=== PATIENT | male | born 1950 | race Caucasian/White ===

== ENCOUNTER 2017-08-26 13:38 | Inpatient (IN) | payer MEDICARE ==
[~2017-08-26] VITALS: Ht 177.8 cm; Wt 71.4 kg
[2017-08-26 14:40] VITALS: BP 149/69
[2017-08-26] MEDS ORDERED: HYDROMORPHONE 1MG/1ML INJ IV PRN (14:45)
[2017-08-26 15:52] VITALS: BP 149/69
[2017-08-26] MEDS: HYDROMORPHONE 2MG/ML INJ IV PRN ×2 (16:15→22:21)
[2017-08-26] MEDS: POLYETHYLENE GLYCOL 3350 17 GM PACK PO SCH ×2 (16:15→16:25)
[2017-08-26 16:39] VITALS: BP 140/53
[2017-08-26 18:05] LABS: BASOPHILS % 0.1 % (0.0-1.0); EOSINOPHILS # (AUTO) 0.2 (0.0-0.4); EOSINOPHILS % 1.2 % (0.0-6.0); HEMATOCRIT 39.9 % (38.2-49.6); HEMOGLOBIN 13.9 g/dL (14.0-18.0); LYMPHOCYTES # (AUTO) 1.2 (1.0-3.2); LYMPHOCYTES % 9.9 % (18.0-39.1); MEAN CORPUSCULAR HEMOGLOBIN 30.1 pg (28-32); MEAN CORPUSCULAR HGB CONC 34.8 g/dL (31-35); MEAN CORPUSCULAR VOLUME 86.4 fL (81-99); MONOCYTES # (AUTO) 0.9 (0.2-0.8); MONOCYTES % 7.6 % (4.4-11.3); NEUTROPHILS # (AUTO) 9.9 (2.1-6.9); NEUTROPHILS % 80.9 % (38.7-80.0); PLATELET COUNT 219 x10e3/uL (140-360); RED BLOOD COUNT 4.62 x10e6/uL (4.3-5.7); RED CELL DISTRIBUTION WIDTH 14.1 % (11.7-14.4)
[2017-08-26 18:18] LABS: INR 1.19; PROTHROMBIN TIME 14.2 seconds (11.9-14.5)
[2017-08-26 18:24] LABS: ANION GAP 12.8 mmol/L (8-16); BLOOD UREA NITROGEN 25 mg/dL (7-26); BUN/CREATININE RATIO 32 (6-25); CALCIUM 9.1 mg/dL (8.4-10.2); CARBON DIOXIDE 27 mmol/L (22-29); CHLORIDE 102 mmol/L (98-107); CREATININE, SERUM 0.79 mg/dL (0.72-1.25); EST GLOMERULAR FILTRATION RATE > 60 ML/MIN (60-); GLUCOSE 228 mg/dL (74-118); POTASSIUM 3.8 mmol/L (3.5-5.1); SODIUM 138 mmol/L (136-145)
[2017-08-26] MEDS ORDERED: KCL 20MEQ/.9 SOD CHL 1,000 ML IV ONE (19:30)
[2017-08-26] MEDS ORDERED: ALBUTEROL/IPRATROPIUM 3 ML NEB NEB PRN (19:30)
[2017-08-26] MEDS ORDERED: ONDANSETRON HCL INJ 2 MG/ML VIAL IV PRN (19:30)
[2017-08-26] MEDS ORDERED: DEXTROSE 50% SYRINGE 50 ML IV PRN (19:30)
[2017-08-26] MEDS: ACETAMINOPHEN 325 MG TAB PO PRN (19:59)
[2017-08-26] MEDS: SENNA-S TABLET PO SCH (20:19)
[2017-08-26 20:56] VITALS: BP 162/73
[2017-08-26] MEDS: INSULIN LISPRO 100 UNIT/1 ML 3ML VIAL SQ SCH (21:01)
--- NOTE | 2017-08-26 21:21 | Diagnostic Imaging Report ---
EXAMINATION: CHEST 2 VIEWS INDICATION: COPD. COMPARISON: None FINDINGS: TUBES and LINES: None. LUNGS: Lungs are well inflated. Minimal perihilar and bibasilar interstitial changes compatible with senile fibrosis. There is no evidence of pneumonia or pulmonary edema. No evidence of hyperinflation to suggest moderate to severe COPD PLEURA: No pleural effusion or pneumothorax. HEART AND MEDIASTINUM: The cardiomediastinal silhouette is remarkable for status post midline sternotomy with intact wires for CABG procedure. BONES AND SOFT TISSUES: There are degenerative changes in the thoracic spine. Soft tissues are unremarkable. UPPER ABDOMEN: No free air under the diaphragm. IMPRESSION: No acute thoracic abnormality. Signed by: Dr. Rob Vo M.D. on 08/26/2017 9:18 PM
--- NOTE | 2017-08-26 21:29 | History and Physical ---
PRESENTING COMPLAINT: Difficulty in swallowing with persistent nausea and abdominal discomfort, got worsened today, persisting for months. HISTORY OF PRESENT ILLNESS: This 67-year-old male was admitted from the office of Dr. Dayday Cruz, insurance risk analyst. I was called by Dr. Cruz to get involved in the care of this patient. Patient was seen in his office today. Patient tells that he had gradually worsening difficulty in swallowing and abdominal pain which was persisting off and on for the last more than 3 years. He was followed up at [facility] for last 3-1/2 years. Recently, less than 2 weeks ago, he was admitted at [facility] with similar problem. He had a CT abdomen and pelvis with contrast which showed patient has atherosclerotic disease affecting abdominal aorta, superior mesenteric artery with mild stenosis of the renal artery. Patient also had gastric emptying study which was significant for gastroparesis. Patient tells that he cannot tolerate any food. The moment he takes some food following which he feels his abdomen gets bloated and starts feeling nauseating. He also had vomiting last week. He did not have any presence of blood with vomitus. He also denied any presence of blood with stool. Patient had EGD last year at [facility], was negative for any abnormal finding as per the patient's statement. Patient denies any fever, chest pain or shortness of breath at the present time. He has chronic bilateral leg pain and lower back pain. Patient was not on any narcotic medication as per his statements. REVIEW OF SYSTEMS CONSTITUTIONAL: No fever, chills or rigor. EYES, ENT: No nasal congestion. No sore throat. No earache. CARDIOVASCULAR: No chest pain, no palpitation, no shortness of breath. PULMONARY: No cough. No hemoptysis. GI: Abdominal discomfort, nausea, vomiting and difficulty swallowing as per HPI. : No dysuria. No hematuria. MUSCULOSKELETAL, SKIN, LYMPHORETICULAR: Patient has low back pain and bilateral leg pain. No other joint swelling or joint pain. NEUROLOGICAL: No loss of consciousness, seizure or headache. Patient has chronic tremor affecting bilateral upper extremity, more on the right side due to Parkinson disease. HISTORY OF PAST MEDICAL ILLNESS 1. CAD, status post CABG in 2003 at [facility], status post PCI in [address] [facility]. 2. Hypertension. 3. Hyperlipidemia. 4. PAD affecting bilateral lower extremity. 5. Atherosclerotic arterial disease affecting abdominal aorta, superior mesenteric artery, renal artery on recent CT abdomen with contrast at [facility]. 6. Systolic dysfunction with ejection fraction 50% to 55%. 7. Diabetes mellitus type 2 for more than 20 years. 8. Hyperlipidemia. 9. Diabetic neuropathy. 10. Parkinson disease, more than 10 years. 11. COPD. 12. Lumbar spondylosis. 13. Chronic malnutrition. 14. Patient denied any history of stroke or cancer. HISTORY OF PAST SURGERY: 1. CABG in 2003. 2. PCI in [address] [facility]. 3. Toe amputation at [facility]. 4. Lumbar spinal surgery in remote past as per the patient's statement. 5. EGD/colonoscopy done more than 1 year ago [address] [facility] as per the patient's statement. ALLERGIES: NO KNOWN MEDICATION ALLERGY. HOME MEDICATIONS: As per med reconciliation sheet. SOCIAL HISTORY: Patient lives at [place] in [place] in the [place] area. He lives alone now. His last year as per the patient's statement. He is in contact with his adult offspring. He has 3 grown up offspring as per his statement. Patient is a retired marine electrician. He retired from job after his CABG in 2003. HABITS: Patient quit smoking recently. He smoked cigarette heavily for 50 years as per his statement. Denies alcohol or other substance abuse history. FAMILY HISTORY: The patient's grandfather of CAD in old age. His father of old age, had dementia. His mother of breast cancer. Siblings are alive and healthy. No other family member had history of diabetes mellitus as per the patient's statement. PHYSICAL EXAMINATION VITALS: Today BP 149/69, pulse 89, temp 97.6, respirations 20, SpO2 97% at room air. GENERAL: Alert, in moderate distress due to abdominal pain and back pain. HEENT: NC, AT. No pallor. No icterus. Oral mucosa dry. NECK: No JVD. No carotid bruits. No lymphadenopathy. No thyromegaly. HEART: S1, S2, regular. No murmur. LUNGS: Clear to auscultation. No crackles. No rhonchi. ABDOMEN: Soft. Mild diffuse tenderness over epigastric area. No palpable mass. Bowel sounds active in all quadrants. EXTREMITIES: No edema, cyanosis or clubbing. NEUROLOGICAL: Motor grossly equal on both sides. Tremor present in bilateral upper extremity, more on the right side. LAB DATA: CBC: WBC 12.27, hemoglobin 13.9, hematocrit 39.9, platelets 219,000, MCV 86, RDW 14, neutrophils 80, lymphocytes 9.9. PT 14.2, INR 1.19. Chemistry panel: Sodium 138, potassium 3.8, chloride 102, CO2 27, anion gap 9, BUN 25, creatinine 0.79, glucose 224, calcium 9.1. EKG pending. ASSESSMENT AND PLAN 1. Abdominal pain with difficulty in swallowing and recurrent nausea, vomiting. Appears multifactorial. Patient has diabetic gastroparesis as per recent gastric emptying study done at [facility]. Also, he has atherosclerotic arterial disease affecting abdominal aorta and mesenteric artery on computed tomographic scan. Patient does not have any postprandial abdominal pain, but he has feeling of bloating as per his statement. Would keep the patient on p.o. feeding as tolerated. Follow up with Dr. Cruz, insurance risk analyst, who admitted the patient. 2. 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 Would request cardiology evaluation by Dr. Wilde. The patient does not follow with any dog breeder as he left [facility] as per his statement. 3. Peripheral arterial disease, bilateral lower extremity. Would follow dog breeder's recommendation. 4. Coronary artery disease, status post coronary artery bypass graft. Patient does not have any chest pain. Recent cardiac workup at [facility] was negative. His ejection fraction was 50%. Would monitor for now. Continue regular medication. 5. Parkinson disease. Continue patient's regular medication. Patient was on Sinemet and amantadine as per his statement. Continue the same dose. He was followed up at [facility] Neurology. Patient can follow with neurologist as an outpatient after discharge from the hospital. 6. Diabetes mellitus type 2. Patient was on Lantus insulin 20 units at home. Will continue his regular insulin regimen along with sliding scale. 7. Hyperlipidemia. Continue patient on his statin. 8. Malnutrition due to poor oral intake from abdominal pain and difficulty swallowing. Would follow insurance risk analyst's recommendation. 9. Chronic back pain and leg pain. Patient might benefit from physical therapy. Will request physical therapy/occupational therapy evaluation. 10.Discharge plan will depend upon gastroenterology's and dog breeder's recommendation. 11. Advanced directive. Patient is full code for now. Job#: [id number] KAE MONTOYA
[2017-08-27] VITALS (8 sets, daily range): BP systolic 121–165; BP diastolic 51–82
[2017-08-27] MEDS: HYDROMORPHONE 2MG/ML INJ IV PRN ×3 (04:01→19:40)
[2017-08-27 06:12] LABS: BASOPHILS % 0.2 % (0.0-1.0); EOSINOPHILS # (AUTO) 0.4 (0.0-0.4); EOSINOPHILS % 5.9 % (0.0-6.0); HEMATOCRIT 37.5 % (38.2-49.6); LYMPHOCYTES # (AUTO) 1.3 (1.0-3.2); LYMPHOCYTES % 21.3 % (18.0-39.1); MEAN CORPUSCULAR HEMOGLOBIN 30.4 pg (28-32); MEAN CORPUSCULAR HGB CONC 34.7 g/dL (31-35); MEAN CORPUSCULAR VOLUME 87.6 fL (81-99); MONOCYTES # (AUTO) 0.8 (0.2-0.8); MONOCYTES % 12.2 % (4.4-11.3); NEUTROPHILS # (AUTO) 3.8 (2.1-6.9); NEUTROPHILS % 60.2 % (38.7-80.0); PLATELET COUNT 205 x10e3/uL (140-360); RED BLOOD COUNT 4.28 x10e6/uL (4.3-5.7); RED CELL DISTRIBUTION WIDTH 14.1 % (11.7-14.4)
[2017-08-27 06:41] LABS: ALANINE AMINOTRANSFERASE 26 IU/L (0-55); ALBUMIN/GLOBULIN RATIO 0.9 (0.8-2.0); ALKALINE PHOSPHATASE 71 IU/L (40-150); AMYLASE 33 U/L (25-125); ANION GAP 11.6 mmol/L (8-16); BLOOD UREA NITROGEN 20 mg/dL (7-26); BUN/CREATININE RATIO 28 (6-25); CALCIUM 8.8 mg/dL (8.4-10.2); CARBON DIOXIDE 28 mmol/L (22-29); CHLORIDE 104 mmol/L (98-107); CHOL/HDL RATIO 2.8 (3.9-4.7); CHOLESTEROL 91 MD/DL (0-199); CREATININE, SERUM 0.71 mg/dL (0.72-1.25); EST GLOMERULAR FILTRATION RATE > 60 ML/MIN (60-); GLUCOSE 120 mg/dL (74-118); HDL CHOLESTEROL 33 MG/DL (40-60); LDL CHOLESTEROL 49 MG/DL (60-130); LIPASE 6 U/L (8-78); POTASSIUM 3.6 mmol/L (3.5-5.1); SODIUM 140 mmol/L (136-145); TRIGLYCERIDES 46 MG/DL (0-149)
[2017-08-27 06:42] LABS: B-TYPE NATRIURETIC PEPTIDE2 132.3 pg/mL (0-100)
[2017-08-27] MEDS: INSULIN LISPRO 100 UNIT/1 ML 3ML VIAL SQ SCH ×4 (07:30→21:00)
[2017-08-27] MEDS ORDERED: ONDANSETRON HCL 4 MG ORAL DISINTEGRATING TAB SL PRN (09:00)
[2017-08-27] MEDS ORDERED: PEG (High)/E-LYTE SOLN 4,000 ML BTL PO ONE (09:00)
[2017-08-27] MEDS ORDERED: BISACODYL 5 MG TAB EC PO ONE ×2 (09:00→12:45)
[2017-08-27] MEDS ORDERED: DIATRIZOATE MEGL/DIATRIZOA SOD 30 ML BTL PO ONE (09:41)
--- NOTE | 2017-08-27 11:25 | Consultation ---
DATE OF CONSULTATION: August 26, 2017 GASTROENTEROLOGY CONSULTATION REASON FOR ADMISSION: Diffuse abdominal pain, early satiation, nausea and weight loss. HISTORY OF PRESENT ILLNESS: This 67-year-old, very pleasant, white male is well known to me from his admission in [facility] last week. He was admitted there with tramadol-induced severe constipation and fecal impaction. He was digitally disimpacted. He was given GoLYTELY to flush out all the stool. After having several bowel movements, the patient felt better, and he was discharged home successfully. Today, his daughters brought him in to my office, telling me that he is not feeling good. He is complaining of diffuse abdominal pain. He has not had a bowel movement for several days. He is nauseated. He has also lost 10 pounds in the last couple of months. Digital rectal examination done in the office revealed no fecal impaction. The rectal vault was empty. Abdominal exam was also quite benign. The patient got admitted to [facility] for further evaluation. I admitted the patient under Dr. Cardenas' service. REVIEW OF SYSTEMS: Twelve point systems reviewed. Symptomatology is limited to GI system. PAST MEDICAL HISTORY: Coronary artery disease, hypertension, hyperlipidemia, Parkinson disease, peripheral arterial disease, congestive heart failure, type-2 diabetes, diabetic neuropathy, lumbar spondylosis, COPD. PAST SURGICAL HISTORY: CABG in 2003, cardiac catheterization at [facility], toe amputation, lumbar spinal surgery also at [facility]. Per patient, EGD and colonoscopy were done more than a year ago at [facility]. ALLERGIES: NO KNOWN DRUG ALLERGIES. HOME MEDICATIONS: Reviewed. SOCIAL HISTORY: No smoking, alcohol or any illicit drug use. He smoked heavily up to 50 years. FAMILY HISTORY: Negative for any GI or SENIOUR INSIGHT MANAGER malignancies. PHYSICAL EXAMINATION VITAL SIGNS: Temperature 98.4, pulse 74, respirations 20, blood pressure 121/51, oxygen saturation 97% on room air. GENERAL: Extremely anxious. HEENT: Moist mucous membranes. Anicteric sclerae. CVS: S1 and S2 regular with a 2/6 murmur. LUNGS: Bilaterally grossly clear. ABDOMEN: Soft. Nondistended. Nontender. No palpable mass or hernia. Positive bowel sounds. EXTREMITIES: Warm. No leg edema. LABS: WBC 12.27, hemoglobin 13.9, hematocrit 39.9, MCV 86.4, platelet count 219. Electrolytes are normal. BUN 20, creatinine 0.71. Liver enzymes are normal. PT 14.2, INR 1.19. CHEST X-RAY: No acute cardiopulmonary process. IMPRESSION 1. Patient is extremely anxious. His CT scan in [facility] showed retained colonic stool. Otherwise, negative for any GI pathology. 2. Nausea, upper abdominal pain, and weight loss. Needs further evaluation. PLAN: I thank Dr. Cardenas for admitting the patient under his service. Will put him on a regular diet. Upper endoscopy tomorrow to evaluate nausea and abdominal pain. If upper endoscopy is negative and colonoscopy was not done within a couple of years, then obviously we will have to do a colonoscopy here as well. Further recommendations based upon endoscopic findings. I thank Dr. Cardenas. Job#: [id number] LINDSAY
[2017-08-27] MEDS ORDERED: IOPAMIDOL 370 MG/ML 200 ML INFUS..BTL INJ ONE (11:45)
[2017-08-27] MEDS ORDERED: SODIUM CHLORIDE 0.9% 50ML 50 ML ONE (11:45)
--- NOTE | 2017-08-27 12:28 | Diagnostic Imaging Report ---
PROCEDURE: CT ABDOMEN AND PELVIS WITH CONTRAST TECHNIQUE: The abdomen and pelvis were scanned utilizing a multidetector helical scanner from the diaphragm to the lesser trochanter after the IV administration of 100 cc of Isovue 370 and the oral administration of Gastrografin/water. Coronal and sagittal multiplanar reformations were obtained. COMPARISON: None. INDICATIONS: ABDOMINAL PAIN FINDINGS: LOWER THORAX: Mild diffuse groundglass opacities throughout the lungs. HEPATOBILIARY: No focal hepatic lesions. No biliary ductal dilatation. There are multiple stones the gallbladder, some of which contain air density. SPLEEN: No splenomegaly. PANCREAS: No focal masses or ductal dilatation. ADRENALS: No adrenal nodules. KIDNEYS/URETERS: No hydronephrosis, stones, or solid mass lesions. PELVIC ORGANS/BLADDER: The bladder is collapsed. The prostate gland is enlarged with multiple coarse calcifications. PERITONEUM / RETROPERITONEUM: No free air or fluid. LYMPH NODES: No lymphadenopathy. VESSELS: Severe atherosclerotic calcifications of the aorta and its branches. GI TRACT: No distention or wall thickening. The appendix is not seen, but there is no suspicious inflammation in the right lower quadrant. Large amount of stool throughout the colon. BONES AND SOFT TISSUES: Postsurgical changes to the left iliac bone. Multilevel spondylosis of the lumbar spine. IMPRESSION: Large amount of stool throughout the colon. Cholelithiasis. No evidence of acute cholecystitis. Severe diffuse atherosclerosis of the aorta and branches. Mild diffuse ground glass opacities at are visualized the lung bases. This is nonspecific and could be due to atelectasis or edema. Dictated by: Jorge Jacobs M.D. on 08/27/2017 at 12:30 Electronically approved by: Jorge Jacobs M.D. on 08/27/2017 at 12:30
[2017-08-27] MEDS: PANTOPRAZOLE SOD 40 MG TABEC PO SCH ×2 (12:53→16:35)
[2017-08-27] MEDS: POLYETHYLENE GLYCOL 3350 17 GM PACK PO SCH ×2 (12:53→21:00)
[2017-08-27 13:25] LABS: BILIRUBIN,URINE NEGATIVE (NEGATIVE); CLARITY,URINE CLEAR (CLEAR); COLOR,URINE YELLOW (YELLOW); KETONES,URINE NEGATIVE (NEGATIVE); LEUKOCYTE ESTERASE ,URINE NEGATIVE (NEGATIVE); NITRITE,URINE NEGATIVE (NEGATIVE); PROTEIN,URINE DIPSTICK NEGATIVE (NEGATIVE); URINE UROBILINOGEN 1 mg/dL (0.2 - 1)
[2017-08-27 13:40] LABS: EPITHELIAL CELLS,URINE RARE /LPF; RBC,URINE 0-5 /HPF (0-5)
--- NOTE | 2017-08-27 14:55 | Progress Note ---
DATE: August 27, 2017 CARDIOLOGY PROGRESS NOTE REQUESTING PHYSICIAN: Jenaro Cardenas MD REASON FOR CONSULTATION: Coronary artery disease. HISTORY OF PRESENT ILLNESS: This is a 67-year-old man with history of coronary artery disease status post CABG in 2004 at [facility] as well as PCI in 2017 at [facility], peripheral arterial disease, atherosclerotic arterial disease of the abdominal aorta superior mesenteric artery and renal artery on recent CT abdomen with contrast at [facility], hypertension, hyperlipidemia, diabetes mellitus type 2, COPD, and Parkinson's disease who presents with persistent nausea and abdominal discomfort. Patient reports he has had progressive abdominal discomfort and nausea for the last few years. He has had decreased oral intake due to early satiety with bloating and nausea such that he has lost 80 pounds in the last 3 years. The patient has had recurrent admissions with these complaints, most recently at [facility]. Cardiology is consulted for management on the patient's coronary artery disease and atherosclerotic disease of the abdominal aorta and superior mesenteric artery. The patient denies chest pain, shortness of breath, palpitations, edema, orthopnea or PND. He denies any lightheadedness or syncope. He only experiences chest pain or shortness of breath when he has extreme abdominal distention, otherwise he has no cardiac complaints. REVIEW OF SYSTEMS: Negative except as per HPI. PAST MEDICAL HISTORY 1. Coronary artery disease status post CABG in 2004 at [facility] with PCI in 2017 at [facility]. 2. Peripheral arterial disease. 3. Atherosclerotic arterial disease affecting the abdominal aorta, superior mesenteric artery and renal artery on CT abdomen at [facility]. 1. Hypertension. 2. Hyperlipidemia. 3. Diabetes mellitus type 2 with diabetic neuropathy. 4. Parkinson's disease. 5. COPD. PAST SURGICAL HISTORY 1. CABG. 2. Lumbar surgery. 3. Toe amputation. ALLERGIES: NO KNOWN DRUG ALLERGIES. MEDICATIONS: Please see EMR. SOCIAL HISTORY: He states he smoked up to 2 packs a day for the last 50 years. Denies any alcohol or illicit drugs. FAMILY HISTORY: Noncontributory. PHYSICAL EXAMINATION VITAL SIGNS: Temperature 97.6 degrees, pulse 76, respiratory rate 20, blood pressure 143/63. Oxygen saturation 98% on room air. GENERAL: Well developed, well nourished man. No acute distress. HEENT: Normocephalic, atraumatic. Pupils equal. No scleral icterus. NECK: Supple. No thyromegaly or cervical lymphadenopathy. No carotid bruits. LUNGS: Clear to auscultation bilaterally. No wheezes or crackles. CARDIOVASCULAR: Normal rate, regular rhythm. No murmur. Normal S1, S2. ABDOMEN: Soft, nontender. EXTREMITIES: No edema. NEURO: Nonfocal exam. LABS: WBC 6.25, hemoglobin 13, hematocrit 37.5, platelets 205. Sodium 140, potassium 3.6, chloride 104, CO2 28, BUN 20, creatinine 0.71. Troponin 0.004. BNP 132. Amylase 33, lipase 6. Cholesterol 91, LDL 49, HDL 33, triglycerides 46. EKG revealed sinus rhythm with ST junction depression. IMPRESSION 1. Abdominal discomfort. 2. Weight loss. 3. Atherosclerotic disease of the abdominal aorta, superior mesenteric artery and renal artery. 4. Peripheral arterial disease. 5. Coronary artery disease status post coronary artery bypass graft and percutaneous coronary intervention. 6. Chronic obstructive pulmonary disease. 7. Diabetes mellitus. 8. Hypertension. 9. Hyperlipidemia. 10. Protein calorie malnutrition. RECOMMENDATIONS: We will obtain records from [facility] regarding the severity of his mesenteric artery stenosis. In the meantime, patient is undergoing evaluation by GI. EGD revealed only gastritis and duodenitis. The patient is planned for CT and colonoscopy. In the meantime, continue current cardiac medications. In the meantime would recommend addition of low dose aspirin. Thank you for this consult. We will continue to follow. Job#: [id number] JOSE J
[2017-08-27] MEDS ORDERED: PANTOPRAZOLE SOD 40 MG TABEC PO ONE (16:30)
[2017-08-27] MEDS ORDERED: LANTUS 3ML100 UNITS/ SQ (16:38)
[2017-08-27] MEDS ORDERED: CARBIDOPA-LEVO1 EA10 PO (17:48)
[2017-08-27] MEDS ORDERED: ZANTAC150 MG PO (17:48)
[2017-08-27] MEDS ORDERED: ATORVASTATIN CA20 MG PO (17:48)
[2017-08-27] MEDS ORDERED: CARBIDOPA-LEVO1 EAC5 (17:48)
[2017-08-27] MEDS ORDERED: LASIX40 MG PO (17:48)
[2017-08-27] MEDS ORDERED: ULTRAM50 MG PO (17:48)
[2017-08-27] MEDS ORDERED: AMANTADINE100 MG (17:48)
[2017-08-27] MEDS ORDERED: TRAZODONE HCL100 MG (17:48)
[2017-08-27] MEDS ORDERED: NON-FORMULARY MEDICATION (Carbidopa/Levodopa (Carbidopa-Levo 25-100 Mg Odt) 2 TAB) PO SCH (18:00)
[2017-08-27] MEDS ORDERED: TRAZODONE HCL 50 MG TAB PO PRN (18:00)
[2017-08-27] MEDS ORDERED: PROPOFOL IV EMULSION 10 MG/ML 50 ML VIAL ONE (18:27)
[2017-08-27] MEDS ORDERED: METOPROLOL TART25 MG PO (18:31)
[2017-08-27] MEDS ORDERED: BRILINTA90 MG PO (18:31)
[2017-08-27] MEDS ORDERED: PEG (High)/E-LYTE SOLN 4,000 ML BTL PO SCH (19:00)
[2017-08-27] MEDS: CARBIDOPA/LEVODOPA 25/100 CR TAB PO SCH (21:00)
[2017-08-27] MEDS: ATORVASTATIN 20 MG TAB PO SCH (22:11)
[2017-08-27] MEDS: CARBIDOPA/LEVODOPA 25/100 TAB PO SCH (22:12)
[2017-08-27] MEDS: SENNA-S TABLET PO SCH (22:12)
[2017-08-28] VITALS: BP 131/75
[2017-08-28] MEDS: HYDROMORPHONE 2MG/ML INJ IV PRN (01:07)
[2017-08-28 04:00] VITALS: BP 183/74
[2017-08-28 06:16] LABS: BASOPHILS % 0.3 % (0.0-1.0); EOSINOPHILS # (AUTO) 0.4 (0.0-0.4); EOSINOPHILS % 3.1 % (0.0-6.0); HEMATOCRIT 41.8 % (38.2-49.6); HEMOGLOBIN 14.4 g/dL (14.0-18.0); LYMPHOCYTES # (AUTO) 1.3 (1.0-3.2); LYMPHOCYTES % 10.2 % (18.0-39.1); MEAN CORPUSCULAR HEMOGLOBIN 29.8 pg (28-32); MEAN CORPUSCULAR HGB CONC 34.4 g/dL (31-35); MEAN CORPUSCULAR VOLUME 86.5 fL (81-99); MONOCYTES % 8.1 % (4.4-11.3); NEUTROPHILS # (AUTO) 9.9 (2.1-6.9); NEUTROPHILS % 77.8 % (38.7-80.0); PLATELET COUNT 245 x10e3/uL (140-360); RED BLOOD COUNT 4.83 x10e6/uL (4.3-5.7); RED CELL DISTRIBUTION WIDTH 13.9 % (11.7-14.4)
[2017-08-28 06:45] LABS: ANION GAP 14.6 mmol/L (8-16); BLOOD UREA NITROGEN 15 mg/dL (7-26); BUN/CREATININE RATIO 19 (6-25); CALCIUM 9.4 mg/dL (8.4-10.2); CARBON DIOXIDE 26 mmol/L (22-29); CHLORIDE 103 mmol/L (98-107); CREATININE, SERUM 0.79 mg/dL (0.72-1.25); EST GLOMERULAR FILTRATION RATE > 60 ML/MIN (60-); GLUCOSE 179 mg/dL (74-118); POTASSIUM 3.6 mmol/L (3.5-5.1); SODIUM 140 mmol/L (136-145)
[2017-08-28 06:52] LABS: THYROID STIMULATING HORMONE 1.067 uIU/mL (0.350-4.940)
[2017-08-28] MEDS: INSULIN LISPRO 100 UNIT/1 ML 3ML VIAL SQ SCH ×4 (07:30→21:00)
[2017-08-28] MEDS: PANTOPRAZOLE SOD 40 MG TABEC PO SCH ×2 (07:30→19:15)
[2017-08-28 08:00] VITALS: BP 147/71
[2017-08-28] MEDS ORDERED: METOPROLOL TARTRATE 25 MG TAB PO SCH (09:00)
[2017-08-28] MEDS: TICAGRELOR 90 MG TABLET PO SCH ×2 (09:00→21:00)
[2017-08-28] MEDS ORDERED: TICAGRELOR 90 MG TABLET PO SCH (09:00)
[2017-08-28] MEDS: ASPIRIN 81 MG ENTERIC COATED PO SCH (09:17)
[2017-08-28] MEDS: AMANTADINE HCL 100 MG CAP PO SCH (09:19)
[2017-08-28] MEDS: CARBIDOPA/LEVODOPA 25/100 TAB PO SCH ×4 (09:19→21:00)
[2017-08-28] MEDS: DICYCLOMINE HCL 20 MG TAB PO PRN ×3 (09:19→21:00)
[2017-08-28] MEDS: FAMOTIDINE 20 MG TAB PO SCH ×2 (09:20→19:13)
[2017-08-28] MEDS: METOPROLOL TARTRATE 25 MG TAB PO SCH ×2 (09:20→21:00)
[2017-08-28] MEDS: POLYETHYLENE GLYCOL 3350 17 GM PACK PO SCH ×2 (09:29→17:00)
[2017-08-28] MEDS: INSULIN DETEMIR 100 UNIT/ML PEN SQ SCH (10:00)
[2017-08-28 11:51] VITALS: BP 103/52
[2017-08-28] MEDS: ACETAMINOPHEN 325 MG TAB PO PRN (15:12)
[2017-08-28] MEDS ORDERED: OLANZAPINE 5 MG TAB PO PRN (16:15)
[2017-08-28 17:01] VITALS: BP 108/42
[2017-08-28 20:00] VITALS: BP 163/67
[2017-08-28] MEDS: TRAMADOL HCL 50 MG TAB PO PRN (20:13)
[2017-08-28] MEDS: ATORVASTATIN 20 MG TAB PO SCH (21:00)
[2017-08-28] MEDS: OLANZAPINE 5 MG TAB PO SCH (21:00)
[2017-08-28] MEDS: SENNA-S TABLET PO SCH (21:00)
[2017-08-28] MEDS: CARBIDOPA/LEVODOPA 25/100 CR TAB PO SCH (21:00)
--- NOTE | 2017-08-28 21:05 | Progress Note ---
DATE: August 28, 2017 CARDIOLOGY PROGRESS NOTE SUBJECTIVE: The patient denies chest pain or shortness of breath. He continues to have abdominal pain. He is attempting to drink his GoLYTELY for colonoscopy. OBJECTIVE VITAL SIGNS: Temperature 96.1 degrees, pulse 75, respiratory rate 18, blood pressure 103/52, oxygen saturation 98% on room air. GENERAL: Awake, alert and in no acute distress. LUNGS: Clear to auscultation bilaterally. No wheezes or crackles. CARDIOVASCULAR: Normal rate, regular rhythm. No murmur. Normal S1, S2. ABDOMEN: Soft, nontender. EXTREMITIES: No edema. CARDIAC MEDICATIONS: 1. Metoprolol tartrate 25 mg p.o. q.12 h. 2. Aspirin 81 mg p.o. daily. 3. Atorvastatin 20 mg p.o. nightly. LABS: WBC 12.72, hemoglobin 14.4, hematocrit 41.8, platelets 245,000, sodium 140, potassium 3.6, chloride 103, CO2 of 26, BUN 15, creatinine 0.79. IMPRESSION 1. Abdominal discomfort. 2. Weight loss. 3. Atherosclerotic disease of the abdominal aorta, superior mesenteric artery and renal artery. 4. Peripheral arterial disease. 5. Coronary artery disease status post coronary artery bypass graft and percutaneous coronary intervention. 6. Chronic obstructive pulmonary disease. 7. Diabetes mellitus. 8. Hypertension. 9. Hyperlipidemia. 10. Protein calorie malnutrition. RECOMMENDATIONS: We are awaiting records from [facility] regarding the severity of his mesenteric artery stenosis. In the meantime, the patient is undergoing evaluation by GI. Colonoscopy has been ordered. However, the patient has not been able to complete his GoLYTELY prep. Continue current cardiac medications. We will discuss possibility of mesenteric angiogram pending CT report and completion of GI evaluation. Thank you for this consult. We will continue to follow. Job#: [id number]
[2017-08-29] VITALS (9 sets, daily range): BP systolic 95–150; BP diastolic 52–67
--- NOTE | 2017-08-29 00:27 | Consultation ---
DATE OF CONSULTATION: August 28, 2017 PSYCHIATRIC CONSULTATION REASON FOR CONSULTATION: To evaluate the patient's and psychosis. HISTORY OF PRESENTING ILLNESS: The patient is a 67-year-old male admitted to the hospital for poor appetite, nausea. Psychiatric consultation is called to evaluate the patient's psychosis. As per medical record, the patient has been complaining of difficulty swallowing with persistent nausea and abdominal discomfort. Upon evaluation today, the patient is found to be in the room. He is alert, awake and oriented to self. He is able to answer questions. The patient appears to be suspicious and paranoid. He believes staff is poisoning him with medication. The patient is angry and upset. His appetite has been poor. He denies any hallucinations. I called and spoke to the patient's daughter who is a bus driver school. She reports that the patient does not have any memory issues. His recently, about 6 months ago. He has been losing significant weight for the last month and a half. She reports that he has history of Parkinson's, but no memory issues. PAST PSYCHIATRIC HISTORY: The patient denies past psychiatric history. He denies past suicide attempts. He denies alcohol or drug abuse. FAMILY HISTORY: Denied. SOCIAL HISTORY: The patient lives alone. MENTAL STATUS EXAM: The patient is an elderly, male who is alert, awake and oriented to self and situation. His mood is irritable and angry. He is paranoid and suspicious. He denies any suicidal or homicidal ideation. He denies any hallucinations. Thought process is concrete. Insight and judgment are limited. CURRENT MEDICATIONS: Insulin, polyethylene, metoprolol, famotidine, Sinemet, , dicyclomine, aspirin, Dilaudid, -Docusate, atorvastatin, ondansetron, acetaminophen, pantoprazole, trazodone p.r.n., tramadol, polyethylene glycol, dextrose. LABORATORY DATA: WBC 12.12, RBCs 12.83, hemoglobin 14.4, hematocrit 41.8, platelets 245,000. Chemistries: Sodium 140, potassium 3.6, chloride 103, CO2 of 26, BUN 15, creatinine 0.79. ASSESSMENT: Unspecified psychosis/rule out dementia. PLAN: Add 2.5 mg p.o. nightly. Add 2.5 mg p.o. q.6 h. p.r.n. Reduce trazodone from 100 mg p.o. nightly p.r.n. to 50 mg p.o. nightly p.r.n. Monitor for agitation and mood. Supportive therapy. Dictated by: SOLA Cruz Job#: [id number] GH
[2017-08-29 07:24] LABS: BASOPHILS % 0.3 % (0.0-1.0); EOSINOPHILS # (AUTO) 0.4 (0.0-0.4); EOSINOPHILS % 6.1 % (0.0-6.0); HEMATOCRIT 42.2 % (38.2-49.6); HEMOGLOBIN 14.5 g/dL (14.0-18.0); LYMPHOCYTES % 28.5 % (18.0-39.1); MEAN CORPUSCULAR HGB CONC 34.4 g/dL (31-35); MEAN CORPUSCULAR VOLUME 87.2 fL (81-99); MONOCYTES # (AUTO) 0.9 (0.2-0.8); MONOCYTES % 12.3 % (4.4-11.3); NEUTROPHILS # (AUTO) 3.7 (2.1-6.9); NEUTROPHILS % 52.5 % (38.7-80.0); PLATELET COUNT 248 x10e3/uL (140-360); RED BLOOD COUNT 4.84 x10e6/uL (4.3-5.7); RED CELL DISTRIBUTION WIDTH 14.1 % (11.7-14.4)
[2017-08-29] MEDS: PANTOPRAZOLE SOD 40 MG TABEC PO SCH ×2 (07:30→17:00)
[2017-08-29] MEDS: INSULIN LISPRO 100 UNIT/1 ML 3ML VIAL SQ SCH ×4 (07:30→21:09)
[2017-08-29 07:44] LABS: ANION GAP 11.4 mmol/L (8-16); BLOOD UREA NITROGEN 14 mg/dL (7-26); BUN/CREATININE RATIO 18 (6-25); CALCIUM 9.5 mg/dL (8.4-10.2); CARBON DIOXIDE 30 mmol/L (22-29); CHLORIDE 104 mmol/L (98-107); CREATININE, SERUM 0.77 mg/dL (0.72-1.25); EST GLOMERULAR FILTRATION RATE > 60 ML/MIN (60-); GLUCOSE 135 mg/dL (74-118); POTASSIUM 3.4 mmol/L (3.5-5.1); SODIUM 142 mmol/L (136-145)
[2017-08-29] MEDS: FAMOTIDINE 20 MG TAB PO SCH ×2 (09:27→17:27)
[2017-08-29] MEDS: POLYETHYLENE GLYCOL 3350 17 GM PACK PO SCH ×2 (09:27→17:00)
[2017-08-29] MEDS: TICAGRELOR 90 MG TABLET PO SCH ×2 (09:27→21:10)
[2017-08-29] MEDS: AMANTADINE HCL 100 MG CAP PO SCH (09:27)
[2017-08-29] MEDS: ASPIRIN 81 MG ENTERIC COATED PO SCH (09:27)
[2017-08-29] MEDS: METOPROLOL TARTRATE 25 MG TAB PO SCH ×2 (09:27→21:10)
[2017-08-29] MEDS: INSULIN DETEMIR 100 UNIT/ML PEN SQ SCH (09:29)
--- NOTE | 2017-08-29 09:53 | Consultation ---
DATE OF CONSULTATION: August 29, 2017 NEUROLOGICAL CONSULTATION TIME: 8:30 a.m. REASON FOR CONSULTATION 1. Parkinson disease. 2. Psychosis. This is a 67-year-old male with multiple medical problems, including coronary disease, coronary bypass, hyperlipidemia, diabetes mellitus, type 2. This patient stated he has a history of Parkinson disease for the last approximately 8 years. He has been followed by a neurologist, and is on medication. According to him, the Parkinson seems to be stable and involves mostly the right arm and somewhat the right foot. He denies any trouble talking. He denies trouble swallowing. He denies any trouble moving around, and is very active at home. The problem he has for the last 2 years has been abdominal discomfort. He has been evaluated at multiple places, including [facility]. He had all kinds of CT scans and MRIs, and colonoscopy. He is still having abdominal pain. He states that they never found anything. He has lost approximately 80 pounds. He used to weigh 240 pounds and now weighs 160. He lost his appetite. He is not able to eat too much because his stomach is bloated and gets distended. He is very frustrated. He has been having episodes of agitation and getting psychosis. PAST HISTORY: As above. REVIEW OF MEDICATIONS: Home medications is takin. Amantadine 100 mg capsule a day. 2. Carbidopa levodopa ER 25 per 100 mg since 2008. 3. Carbidopa levodopa ER 25 per 100 mg 2 tablets 4 times a day. 4. Taking Tessalon and . ALLERGIES: NO KNOWN ALLERGIES. SOCIAL HISTORY: He smoked at least a couple of packs a day for years. He denies any alcohol. REVIEW OF SYSTEMS: All 12 steps negative except what is described above. PHYSICAL EXAMINATION VITALS: Blood pressure is 130/70, pulse 74 and regular, afebrile. LUNGS: Clear to auscultation. HEART: Regular sinus rhythm. There is no murmur. ABDOMEN: Soft and nontender. No organomegaly. MUSCULOSKELETAL/LOWER EXTREMITIES: No edema. No cyanosis. No clubbing. NEURO: At the time of this examination, he is calm, alert. There is no evidence of hallucinations or paranoia or agitation. He is oriented times 3. Speech is clear. No dysarthria or dysphagia. Cranial nerves: Pupils are both equal and reactive. Extraocular movements were full. Visual tapia were normal. No facial weakness. Tongue protrudes in the midline. We see the patient moderate intensity 4-6 tremor of the right hand. Occasionally, a little bit on the right foot. There is no tremor on the left. No head tremor. No jerk tremor. The patient is able to elevate arms and legs against gravity too without any difficulty. Abduction of the arms is 5/5. Flexion and extension of the arms is 5/5. Dorsiflexion of the wrist is 5/5. Flexion of the fingers 5/5. Straight leg raise is 70 degrees bilaterally without discomfort. Flexion of the hips is 5/5. Flexion and extension of the knees are 5/5. Dorsiflexion of the ankles are 5/5. Plantar flexion is 5/5. Deep tendon reflexes of the triceps, biceps and radialis are 1+. Knee jerk is absent bilaterally. Coordination: [id number] is normal. Posture holding we see a tremor of the right hand. Rapid alternating movements are decreased in the right hand. There is moderate bradykinesia. No cogwheeling. HEENT: Head was normocephalic. NECK: Supple. Carotid pulsations were present bilaterally with no bruit. EXTREMITIES: Gait was deferred. IMPRESSION 1. Parkinson disease involving the right arm and right foot: Seems to be quite stable. 2. Abdominal discomfort for the last several years, unspecified. 3. Diabetes mellitus, type 2. 4. Peripheral neuropathy, probably diabetic type. 5. Coronary artery disease. 6. Obstructive pulmonary disease. 7. Hypertension. 8. Hyperlipidemia. We have with the patient about Parkinson. From the Parkinson point of view, he seems to be stable. We do not need to change the doses of the medications. Continue as it is. For his psychosis, at the time of this examination there is no psychosis at all. He is very well calm and cooperative. The patient has been seeing Dr. Pickard, psychiatrist. I gave him his medications and should continue with that. Will follow. Job#: [id number] IA
[2017-08-29] MEDS: CARBIDOPA/LEVODOPA 25/100 TAB PO SCH ×3 (11:18→17:27)
--- NOTE | 2017-08-29 12:02 | Progress Note ---
DATE: August 29, 2017 CARDIOLOGY PROGRESS NOTE SUBJECTIVE: The patient denies chest pain or shortness of breath. OBJECTIVE VITAL SIGNS: Temperature 97 degrees, pulse 73, respiratory rate 18, blood pressure 127/56, and oxygen saturation is 95% on room air. GENERAL: Awake, alert and in no acute distress. LUNGS: Clear to auscultation bilaterally. No wheezes or crackles. CARDIOVASCULAR: Normal rate. Regular rhythm. No murmur. Normal S1 and S2. ABDOMEN: Soft and nontender. EXTREMITIES: No edema. CARDIAC MEDICATIONS 1. Metoprolol tartrate 25 mg p.o. q.12 h. 2. Aspirin 81 mg p.o. daily. 3. Atorvastatin 20 mg p.o. at bedtime. LABS: WBC 7.05, hemoglobin 14.5, hematocrit 42.2, and platelets 248,000. Sodium 142, potassium 3.4, chloride 104, CO2 30, BUN 14, creatinine 0.77. IMPRESSION 1. Abdominal discomfort. 2. Weight loss. 3. Atherosclerotic disease of the abdominal aorta, superior mesenteric artery and renal artery. 4. Peripheral arterial disease. 5. Coronary artery disease: Status post coronary artery bypass graft and percutaneous coronary intervention. 6. Chronic obstructive pulmonary disease. 7. Diabetes mellitus. 8. Hypertension. 9. Hyperlipidemia. 10. Protein calorie malnutrition. RECOMMENDATIONS: The patient is undergoing evaluation by GI. However, the patient was unable to complete his GOLYTELY prep for colonoscopy. In the meantime, continue current cardiac medications. We will discuss the possibility of mesenteric angiogram pending CT report and completion of GI evaluation. Thank you for this consult. We will continue to follow. Job#: [id number] RICARDO
[2017-08-29] MEDS: TRAMADOL HCL 50 MG TAB PO PRN (17:20)
[2017-08-29] MEDS ORDERED: POTASSIUM CHLORIDE 20 MEQ TAB CR PO NR (18:45)
[2017-08-29] MEDS: OLANZAPINE 5 MG TAB PO SCH (21:09)
[2017-08-29] MEDS: CARBIDOPA/LEVODOPA 25/100 CR TAB PO SCH (21:09)
[2017-08-29] MEDS: SENNA-S TABLET PO SCH (21:09)
[2017-08-29] MEDS: TRAZODONE HCL 50 MG TAB PO PRN (21:10)
[2017-08-29] MEDS: ATORVASTATIN 20 MG TAB PO SCH (21:10)
[2017-08-30 04:20] VITALS: BP 158/70
[2017-08-30 07:30] VITALS: BP 141/63
[2017-08-30] MEDS: INSULIN LISPRO 100 UNIT/1 ML 3ML VIAL SQ SCH ×4 (07:30→19:47)
[2017-08-30] MEDS: PANTOPRAZOLE SOD 40 MG TABEC PO SCH ×2 (07:47→16:30)
[2017-08-30] MEDS: CARBIDOPA/LEVODOPA 25/100 TAB PO SCH ×4 (08:00→17:44)
[2017-08-30 08:13] VITALS: BP 141/63
[2017-08-30] MEDS: POLYETHYLENE GLYCOL 3350 17 GM PACK PO SCH ×2 (09:11→17:00)
[2017-08-30] MEDS: TICAGRELOR 90 MG TABLET PO SCH ×2 (09:11→21:41)
[2017-08-30] MEDS: ASPIRIN 81 MG ENTERIC COATED PO SCH (09:11)
[2017-08-30] MEDS: AMANTADINE HCL 100 MG CAP PO SCH (09:11)
[2017-08-30] MEDS: FAMOTIDINE 20 MG TAB PO SCH ×2 (09:11→17:44)
[2017-08-30] MEDS: METOPROLOL TARTRATE 25 MG TAB PO SCH ×2 (09:12→21:42)
[2017-08-30] MEDS: INSULIN DETEMIR 100 UNIT/ML PEN SQ SCH (09:22)
[2017-08-30 11:33] VITALS: BP 129/63
[2017-08-30] MEDS: TRAMADOL HCL 50 MG TAB PO PRN (14:50)
[2017-08-30] MEDS: DICYCLOMINE HCL 20 MG TAB PO PRN (14:53)
[2017-08-30 15:25] VITALS: BP 92/58
--- NOTE | 2017-08-30 17:04 | Progress Note ---
DATE: August 30, 2017 CARDIOLOGY PROGRESS NOTE SUBJECTIVE: The patient denies chest pain or shortness of breath. He reports his abdomen is feeling better. OBJECTIVE VITALS: Temperature 96.3 degrees, pulse 75, respiratory rate 18, blood pressure 92/58, oxygen saturation 98%. GENERAL: Awake, alert and in no acute distress. LUNGS: Clear to auscultation bilaterally. No wheezes or crackles. CARDIOVASCULAR: Normal rate. Regular rhythm. No murmur. Normal S1 and S2. ABDOMEN: Soft and nontender. EXTREMITIES: No edema. CARDIAC MEDICATIONS 1. Metoprolol tartrate 25 mg p.o. q.12 h. 2. Aspirin 81 mg p.o. daily. 3. Atorvastatin 20 mg p.o. at bedtime. LABS: None today. Telemetry none. IMPRESSION 1. Abdominal discomfort. 2. Weight loss. 3. Atherosclerotic disease of the abdominal aorta, superior mesenteric artery and renal artery. 4. Peripheral arterial disease. 5. Coronary artery disease: Status post coronary artery bypass grafting and percutaneous coronary intervention. 6. Chronic obstructive pulmonary disease. 7. Diabetes mellitus. 8. Hypertension. 9. Hyperlipidemia. 10. Protein calorie malnutrition. RECOMMENDATIONS: Evaluation of abdominal discomfort and weight loss per GI. Continue current cardiac medications. Will discuss the possibility of mesenteric angiogram pending CT report and completion of GI evaluation. Thank you for this consult. We will continue to follow. Job#: [id number] RICARDO
[2017-08-30 19:30] VITALS: BP 120/60
[2017-08-30] MEDS: ATORVASTATIN 20 MG TAB PO SCH (21:41)
[2017-08-30] MEDS: SENNA-S TABLET PO SCH (21:42)
[2017-08-30] MEDS: TRAZODONE HCL 50 MG TAB PO PRN (21:42)
[2017-08-30] MEDS: CARBIDOPA/LEVODOPA 25/100 CR TAB PO SCH (21:42)
[2017-08-30] MEDS: OLANZAPINE 5 MG TAB PO SCH (21:42)
[2017-08-31] VITALS (9 sets, daily range): BP systolic 105–132; BP diastolic 50–61
[2017-08-31] MEDS: TRAMADOL HCL 50 MG TAB PO PRN ×2 (05:23→16:45)
[2017-08-31 07:08] LABS: BASOPHILS % 0.4 % (0.0-1.0); EOSINOPHILS # (AUTO) 0.4 (0.0-0.4); EOSINOPHILS % 4.6 % (0.0-6.0); HEMOGLOBIN 13.8 g/dL (14.0-18.0); LYMPHOCYTES # (AUTO) 1.6 (1.0-3.2); LYMPHOCYTES % 21.1 % (18.0-39.1); MEAN CORPUSCULAR HEMOGLOBIN 29.8 pg (28-32); MEAN CORPUSCULAR HGB CONC 33.7 g/dL (31-35); MEAN CORPUSCULAR VOLUME 88.6 fL (81-99); MONOCYTES # (AUTO) 0.9 (0.2-0.8); MONOCYTES % 12.3 % (4.4-11.3); NEUTROPHILS # (AUTO) 4.6 (2.1-6.9); NEUTROPHILS % 61.3 % (38.7-80.0); PLATELET COUNT 232 x10e3/uL (140-360); RED BLOOD COUNT 4.63 x10e6/uL (4.3-5.7); RED CELL DISTRIBUTION WIDTH 14.3 % (11.7-14.4)
[2017-08-31 07:30] LABS: ALANINE AMINOTRANSFERASE 9 IU/L (0-55); ALBUMIN 3.3 g/dL (3.5-5.0); ALKALINE PHOSPHATASE 84 IU/L (40-150); ANION GAP 11.9 mmol/L (8-16); BLOOD UREA NITROGEN 9 mg/dL (7-26); BUN/CREATININE RATIO 10 (6-25); CALCIUM 9.5 mg/dL (8.4-10.2); CARBON DIOXIDE 31 mmol/L (22-29); CHLORIDE 106 mmol/L (98-107); CREATININE, SERUM 0.86 mg/dL (0.72-1.25); EST GLOMERULAR FILTRATION RATE > 60 ML/MIN (60-); GLUCOSE 126 mg/dL (74-118); POTASSIUM 3.9 mmol/L (3.5-5.1); SODIUM 145 mmol/L (136-145)
[2017-08-31] MEDS: INSULIN LISPRO 100 UNIT/1 ML 3ML VIAL SQ SCH ×4 (07:30→21:00)
[2017-08-31] MEDS: CARBIDOPA/LEVODOPA 25/100 TAB PO SCH ×4 (08:00→17:00)
[2017-08-31] MEDS: ASPIRIN 81 MG ENTERIC COATED PO SCH (08:30)
[2017-08-31] MEDS: INSULIN DETEMIR 100 UNIT/ML PEN SQ SCH (08:30)
[2017-08-31] MEDS: FAMOTIDINE 20 MG TAB PO SCH ×2 (08:30→17:00)
[2017-08-31] MEDS: PANTOPRAZOLE SOD 40 MG TABEC PO SCH ×2 (08:30→16:30)
[2017-08-31] MEDS: TICAGRELOR 90 MG TABLET PO SCH ×2 (08:30→21:00)
[2017-08-31] MEDS: AMANTADINE HCL 100 MG CAP PO SCH (08:30)
[2017-08-31] MEDS: POLYETHYLENE GLYCOL 3350 17 GM PACK PO SCH ×2 (08:30→17:00)
[2017-08-31] MEDS: METOPROLOL TARTRATE 25 MG TAB PO SCH ×2 (08:30→21:00)
--- NOTE | 2017-08-31 13:13 | Progress Note ---
DATE: August 31, 2017 CARDIOLOGY PROGRESS NOTE SUBJECTIVE: The patient denies chest pain or shortness of breath. OBJECTIVE VITALS: Temperature 96.7 degrees, pulse 73, respiratory rate 20, blood pressure 123/58. Oxygen saturation 98% on room air. GENERAL: Awake, alert and in no acute distress. LUNGS: Clear to auscultation bilaterally. No wheezes or crackles. CARDIOVASCULAR: Normal rate. Regular rhythm. No murmur. Normal S1 and S2. ABDOMEN: Soft and nontender. EXTREMITIES: No edema. CARDIAC MEDICATIONS 1. Metoprolol tartrate 25 mg p.o. q.12 h. 2. Aspirin 81 mg p.o. daily. 3. Atorvastatin 20 mg p.o. at bedtime. LABS: WBC 7.57, hemoglobin 13.8, hematocrit 41, platelets 232. Sodium 145, potassium 3.9, chloride 106, CO2 31, BUN 9, creatinine 0.86. IMPRESSION 1. Abdominal discomfort. 2. Weight loss. 3. Protein-calorie malnutrition. 4. Atherosclerotic disease of the abdominal aorta, superior mesenteric artery and renal artery. 5. Peripheral arterial disease and coronary artery disease, status post coronary artery bypass grafting and percutaneous coronary intervention. 6. Chronic obstructive pulmonary disease. 7. Diabetes mellitus. 8. Hypertension. 9. Hyperlipidemia. RECOMMENDATIONS: Evaluation of abdominal discomfort and weight loss per GI. Continue current cardiac medications. Thank you for this consult. We will continue to follow. Job#: [id number]
--- NOTE | 2017-08-31 14:59 | Progress Note ---
DATE: August 31, 2017 PSYCHIATRIC PROGRESS NOTE Patient evaluated and events noted. Patient is found to be lying in the bed. He is alert, awake and oriented to situation. He is improving. He is less irritable, less agitated, less suspicious. He denies any depression. He denies anxiety and denies any hallucinations. He reports eating, appetite is better. He denies any issue with sleep. He denies any side effects to medication. As per nursing staff, patient is improving. He is compliant with his medications. He is able to have some liquid diet. He has not been combative or aggressive. He has not received any p.r.n. p.o. medication. No serious side effects seen. ASSESSMENT 1. Unspecified psychosis. 2. Underlying dementia. PLAN 1. Continue Zyprexa 2.5 mg per q.6 hours p.r.n. 2. Continue Zyprexa 2.5 mg p.o. nightly. 3. Continue trazodone 50 mg p.o. nightly p.r.n. 4. Monitor for mood. 5. Supportive therapy. Dictated by: SOLA Cruz Job#: [id number] DG
[2017-08-31] MEDS: DICYCLOMINE HCL 20 MG TAB PO PRN (17:00)
--- NOTE | 2017-08-31 20:12 | Progress Note ---
DATE: August 31, 2017 GASTROENTEROLOGY PROGRESS NOTE SUBJECTIVE: Patient reporting improvement in abdominal pain. He is having regular bowel movements. Tolerating oral feeds. REVIEW OF SYSTEMS GENERAL: No fever or chills. RESPIRATORY: No cough or expectoration. CVS: No chest pain or palpitations. MEDICATIONS: Reviewed JUN. PHYSICAL EXAMINATION VITAL SIGNS: Temperature 97.3, pulse 71, respirations 20, blood pressure 129/59, oxygen saturation 97% on room air. GENERAL: Not in any acute distress. HEENT: Moist mucous membranes, anicteric sclerae. NECK: No neck or axillary adenopathy. CVS: S1 and S2 regular. LUNGS: Bilaterally grossly clear. ABDOMEN: Soft, nondistended, nontender. No palpable mass or hernia. Positive bowel sounds. EXTREMITIES: Warm. No leg edema. LABS: WBC 7.57, hemoglobin 13.8, hematocrit 41.0. MCV 88.6, platelet count 232. Sodium 145, potassium 3.9, chloride 106, bicarb 31, BUN 9, creatinine 0.86, glucose 126. Liver enzymes are normal. PT 14.2, INR 1.19. Urinalysis is negative. CT of the abdomen and pelvis done on 08/27/2017 showed: 1. A large amount of stool throughout the colon. 2. Cholelithiasis. No evidence of acute cholecystitis. 3. Severe diffuse atherosclerosis of the aorta and branches. 4. Mild diffuse ground-glass opacities are visualized at the lung bases. This is nonspecific and could be due to atelectasis or edema. IMPRESSION 1. Constipation persists, but significantly improved. 2. Nonspecific abdominal pain, likely due to underlying irritable bowel syndrome. Patient is on dicyclomine as needed. 3. Anxiety, depression and psychosis. The patient is being followed by psychiatric service. PLAN: Continue bowel regimen. No need for colonoscopy as the patient had a colonoscopy within 1 year at [facility]. Upper endoscopy was essentially done on this admission, was unremarkable. Duodenal biopsy shows mild active inflammation. Gastric biopsy showed gastritis without any H. pylori infection. Will do a KUB tomorrow to check for stool load. Continue daily bowel regimen. The patient can be discharged home from GI standpoint. Job#: [id number] LINDSAY
[2017-08-31] MEDS: OLANZAPINE 5 MG TAB PO SCH (21:00)
[2017-08-31] MEDS ORDERED: TAMSULOSIN HCL 0.4 MG CAP PO SCH (21:00)
[2017-08-31] MEDS: CARBIDOPA/LEVODOPA 25/100 CR TAB PO SCH (21:00)
[2017-08-31] MEDS: SENNA-S TABLET PO SCH (21:00)
[2017-08-31] MEDS: ATORVASTATIN 20 MG TAB PO SCH (21:00)
[2017-09-01] VITALS: BP 135/60
[2017-09-01] MEDS: TRAMADOL HCL 50 MG TAB PO PRN ×2 (02:01→08:45)
[2017-09-01] MEDS: DICYCLOMINE HCL 20 MG TAB PO PRN ×2 (02:02→08:45)
[2017-09-01 04:00] VITALS: BP 143/65
[2017-09-01 07:32] LABS: ANION GAP 12.1 mmol/L (8-16); BLOOD UREA NITROGEN 14 mg/dL (7-26); BUN/CREATININE RATIO 16 (6-25); CALCIUM 9.4 mg/dL (8.4-10.2); CARBON DIOXIDE 28 mmol/L (22-29); CHLORIDE 102 mmol/L (98-107); EST GLOMERULAR FILTRATION RATE > 60 ML/MIN (60-); GLUCOSE 242 mg/dL (74-118); POTASSIUM 4.1 mmol/L (3.5-5.1); SODIUM 138 mmol/L (136-145)
[2017-09-01 08:00] VITALS: BP 126/58
[2017-09-01] MEDS: INSULIN LISPRO 100 UNIT/1 ML 3ML VIAL SQ SCH (08:00)
[2017-09-01] MEDS: POLYETHYLENE GLYCOL 3350 17 GM PACK PO SCH (08:30)
[2017-09-01] MEDS: TICAGRELOR 90 MG TABLET PO SCH (08:30)
[2017-09-01] MEDS: ASPIRIN 81 MG ENTERIC COATED PO SCH (08:30)
[2017-09-01] MEDS: AMANTADINE HCL 100 MG CAP PO SCH (08:30)
[2017-09-01] MEDS: PANTOPRAZOLE SOD 40 MG TABEC PO SCH (08:30)
[2017-09-01] MEDS: CARBIDOPA/LEVODOPA 25/100 TAB PO SCH (08:30)
[2017-09-01] MEDS: METOPROLOL TARTRATE 25 MG TAB PO SCH (08:30)
[2017-09-01] MEDS: FAMOTIDINE 20 MG TAB PO SCH (08:30)
[2017-09-01] MEDS ORDERED: INSULIN DETEMIR 100 UNIT/ML PEN SQ SCH (09:00)
[2017-09-01] MEDS ORDERED: FINASTERIDE 5 MG TAB PO SCH (09:00)
--- NOTE | 2017-09-01 10:58 | Diagnostic Imaging Report ---
PROCEDURE:ABDOMEN-1VIEW (KUB) TECHNIQUE:Portable supine AP abdomen totaling 2 radiographs INDICATION:Constipation COMPARISON:None. FINDINGS: See conclusion. CONCLUSION: 1. Normal bowel gas pattern. Moderate stool volume in the ascending colon. No conspicuous rectal stool. 2. No evidence of organomegaly or ascites. 3. Cholelithiasis. 4. Intact skeleton. Dictated by: Brayan Roman M.D. on 09/01/2017 at 11:00 Electronically approved by: Brayan Roman M.D. on 09/01/2017 at 11:00
[2017-09-01 12:00] VITALS: BP 93/53
--- NOTE | 2017-09-01 14:32 | Progress Note ---
DATE: September 01, 2017 CARDIOLOGY PROGRESS NOTE SUBJECTIVE: The patient denies chest pain or shortness of breath. OBJECTIVE: VITAL SIGNS: Temperature 98.2 degrees, pulse 79, respiratory rate 20, blood pressure 126/58, oxygen saturation 98%. GENERAL: Awake, alert, cachectic, no acute distress. LUNGS: Clear to auscultation bilaterally. No wheezes or crackles. CARDIOVASCULAR: Normal rate, regular rhythm. No murmur. Normal S1 and S2. ABDOMEN: Soft, nontender. EXTREMITIES: No edema. CARDIAC MEDICATIONS 1. Metoprolol tartrate 25 mg p.o. q.12 hours. 2. Aspirin 81 mg p.o. daily. 3. Atorvastatin 20 mg p.o. nightly. LABS: Sodium 138, potassium 4.1, chloride 102, CO2 28, BUN 14, creatinine 0.9. 1. Abdominal discomfort. 2. Protein calorie malnutrition. 3. Weight loss. 4. Atherosclerotic disease of the abdominal aorta, superior mesenteric artery and renal artery. 5. Peripheral arterial disease and coronary artery disease status post coronary artery bypass graft and percutaneous coronary intervention. 6. Chronic obstructive pulmonary disease. 7. Diabetes mellitus. 8. Hypertension. 9. Hyperlipidemia. RECOMMENDATIONS: Patient's symptoms are improving. Management of abdominal discomfort and weight loss per GI. Continue current cardiac medications. As patient has improved and there is no evidence of mesenteric ischemia, no indication for mesenteric angiography at this time. Thank you for this consult. We will continue to follow. Job#: [id number] JOSE J
--- NOTE | 2017-09-01 15:46 | Progress Note ---
DATE: September 01, 2017 PSYCHIATRIC PROGRESS NOTE Patient is seen in the room. He is alert, awake, and oriented to situation. He is doing better. He is not agitated or combative. He is pleasant and cooperative. He denies depression or anxiety. He denies any hallucinations. Appears to be less paranoid. He denies any side effects from medications. He states he is sleeping and eating well. He is to be discharged today. ASSESSMENT: Unspecified psychosis/dementia. PLAN 1. Continue Zyprexa 2.5 mg per each bedtime. 2. Continue trazodone p.r.n. 3. Continue Zyprexa p.r.n. 4. Monitor for mood. 5. Recommend to follow up with outpatient psychiatrist. 6. Patient is cleared from psychiatry standpoint. Dictated by: SOLA Cruz Job#: [id number]
--- NOTE | 2017-09-01 17:56 | Discharge Summary ---
ROOM 297 CONSULTATIONS: Dr. Cruz in Gastroenterology, Dr. Zamudio broadcast meteorologist, Dr. Nunez neurologist, Dr. Pickard psychiatrist. PROCEDURES: Esophagogastroduodenoscopy done by Dr. Cruz. FINAL DIAGNOSIS: Persistent nausea with abdominal pain due to gastroparesis. OTHER DIAGNOSES: 1. Mild gastritis. 2. Coronary artery disease status post coronary artery bypass graft by history. 3. Peripheral arterial disease affecting bilateral lower extremities. 4. Atherosclerotic arterial disease affecting mesenteric arteries on CT scan. 5. Systolic dysfunction with ejection fraction of 50% to 55%. 6. Diabetes mellitus type 2. 7. Hypertension. 8. Hyperlipidemia. 9. Diabetic neuropathy. 10. Parkinson's disease by history. 11. Chronic obstructive pulmonary disease. 12. Lumbar spondylosis. 13. Protein calorie malnutrition. 14. Anxiety/depression. 15. Prostatomegaly. BRIEF HOSPITAL COURSE: A 67-year-old male was admitted from the office of Dr. Cruz, livestock yard attendant, for persistent nausea with abdominal discomfort. Patient had history of gastroparesis and constipation. Patient had an EGD done by Dr. Cruz and it showed mild gastritis, no other significant finding. Patient was complaining of persistence of the symptoms here. A gastric emptying study done at [facility] less than 2 weeks ago which showed gastroparesis. Patient also had chronic constipation. Patient was continued on a bowel regimen. He had history of CAD status post CABG and PAD for which cardiology consult was done by Dr. Zamudio. She did not recommend any need for intervention. Patient also had history of Parkinson's disease. Dr. Nunez a neurologist was consulted. Patient had symptoms which were not accounted for by physical findings and diagnostic workup. Patient appeared depressed. He was also having malnutrition due to poor oral intake. Psychiatrist, Dr. Pickard was consulted. Patient was agitated and declined taking medication. On the second day of hospitalization psychiatrist, Dr. Pickard, started patient on Zyprexa along with p.r.n. trazodone. Patient responded well to the treatment. He was taking food better than before. His abdominal discomfort also continued to improve. He was started on Bentyl p.o. p.r.n. by livestock yard attendant. He was cleared by livestock yard attendant for discharge. Patient did discharge home with instructions. He was also evaluated by physical therapist while in hospital. Patient was hemodynamically stable at discharge. VITALS: BP 122/58, pulse 79, temp 98.2, respirations 20, SPO2 90% on room air. PHYSICAL EXAMINATION GENERAL: Alert, not in acute distress. HEENT: No pallor. No icterus. NECK: No JVD, no carotid bruit. No lymphadenopathy or thyromegaly. HEART: S1 and S2 regular. No murmur. LUNGS: Clear to auscultation. ABDOMEN: Soft, nontender. No palpable mass. Bowel sounds active in all quadrants. EXTREMITIES: No edema, cyanosis, clubbing. NEUROLOGICAL: Motor grossly equal on both sides. Tremor present on both upper extremities and more on the right upper extremity than left. LAB DATA: CBC, WBC 7.57, hemoglobin 13, hematocrit 41, platelets 232, MCV 80, RDW 14, neutrophil 61, lymphocyte 21. PT 14.2, INR 1.19. Chemistry panel: Sodium 130, potassium 4.1, chloride 102, CO2 28, anion gap 8, bilirubin 14, creatinine 0.9, glucose 242, lactic acid 4.6, calcium 9.4, magnesium 1.9, total bilirubin 1.0, AST 20, ALT 9, alk phos 84. C-reactive protein 14.2. BNP 132. Total protein 6.6, albumin 3.3, globulin 8.3. Prealbumin 16. Triglycerides 46, total cholesterol 91, LDL 49, HDL 13. Amylase 33, lipase 6. TSH 1.06. PSA pending. Urinalysis negative for protein, glucose, ketones, nitrites. Leuk esterase negative. WBCs zero, RBCs 0 to 5. MICROBIOLOGICAL: Blood cultures, no growth in 5 days. RADIOLOGICAL DATA: X-ray chest single view: No acute thoracic abnormality. No evidence of pneumonia or pulmonary edema. Moderate to severe COPD. CT abdomen and pelvis with contrast: A large amount of stool throughout the colon, cholelithiasis. No evidence of acute cholecystitis. Severe diffuse atherosclerosis of the aorta and branches. Mildly diffuse ground-glass opacities visualized at the lung bases, nonspecific. Could be due to atelectasis or edema. X-ray KUB done today, single view. Normal bowel gas pattern. Moderate stool volume in the ascending colon. No conspicuous rectal stool. No evidence of organomegaly, ascites, cholelithiasis. Intact skeleton. PATHOLOGICAL REPORT: Duodenal biopsy: Focal active inflammation and mucosal erosion. Stomach biopsy: Antral and oxyntic mucosa with no pathological alterations. MEDICATIONS AT DISCHARGE: Please refer to the medication reconciliation sheet. DIET: Heart healthy and diabetic diet. ACTIVITY: As tolerated. Fall precaution. INSTRUCTION AT DISCHARGE: Continue medication as per discharge recommendation. Followup with livestock yard attendant, broadcast meteorologist, neurologist, and psychiatrist as available. Monitor BP, fingerstick glucose at home. Followup with me in 1 to 2 weeks. CANDICE WEST MD Job#: [id number] DG
[2017-09-02] MEDS ORDERED: INSULIN DETEMIR 100 UNIT/ML PEN SQ SCH (09:00)
== END 2017-09-01 15:55 | disposition home or self-care (01) | DRG 73 ==
LOC: IMCU 14:26 → OBSVTOIN 08-28 16:16 → MED/SURG3 08-28 18:21
PROVIDERS: ADMIT Internal Medicine; ATTEND Internal Medicine
PROC: 0DB78ZX Excision of Stomach, Pylorus, Via Natural or Artificial Opening Endoscopic, Diagnostic (ICD-10-PCS; 2017-08-27)
PROC: 0DB98ZX Excision of Duodenum, Via Natural or Artificial Opening Endoscopic, Diagnostic (ICD-10-PCS; principal; 2017-08-27 07:30)
DX: E11.43 Type 2 diabetes mellitus with diabetic autonomic (poly)neuropathy (principal); E43 Unspecified severe protein-calorie malnutrition; K55.1 Chronic vascular disorders of intestine; I50.22 Chronic systolic (congestive) heart failure; F03.91 Unspecified dementia, unspecified severity, with behavioral disturbance; F05 Delirium due to known physiological condition; R64 Cachexia; K31.84 Gastroparesis; K29.70 Gastritis, unspecified, without bleeding; I73.9 Peripheral vascular disease, unspecified; M47.816 Spondylosis without myelopathy or radiculopathy, lumbar region; Z79.4 Long term (current) use of insulin; E11.40 Type 2 diabetes mellitus with diabetic neuropathy, unspecified; G20 Parkinson's disease; Z68.23 Body mass index [BMI] 23.0-23.9, adult; Z95.1 Presence of aortocoronary bypass graft; J44.9 Chronic obstructive pulmonary disease, unspecified; I25.10 Atherosclerotic heart disease of native coronary artery without angina pectoris; I11.0 Hypertensive heart disease with heart failure; I70.0 Atherosclerosis of aorta; I70.1 Atherosclerosis of renal artery; G89.29 Other chronic pain; M79.606 Pain in leg, unspecified; Z68.22 Body mass index [BMI] 22.0-22.9, adult; F41.9 Anxiety disorder, unspecified; F32.9 Major depressive disorder, single episode, unspecified; K58.9 Irritable bowel syndrome, unspecified; K29.80 Duodenitis without bleeding; K26.9 Duodenal ulcer, unspecified as acute or chronic, without hemorrhage or perforation; Z79.899 Other long term (current) drug therapy
CPT/HCPCS: 36415; 43239; 71046; 74018; 74177; 80048; 80053; 80061; 81001; 82150; 82948; 83605; 83690; 83735; 83880; 84134; 84152; 84443; 84484; 85025; 85610; 86140; 87040; 88305; 88312; 93005; 96360; 96372; G0378; J7799; Q9967